=== PATIENT | male | born 1995 | race Caucasian/White ===

== ENCOUNTER 2019-07-02 01:14 | Emergency (ER) | payer OTHER ==
[2019-07-02] MEDS ORDERED: Lidocaine 1% (PF) 30 ML VIAL ONE (01:54)
== END 2019-07-02 02:44 | disposition home or self-care (01) ==
LOC: ERS 01:14
DX: S61.210A Laceration without foreign body of right index finger without damage to nail, initial encounter (principal); W25.XXXA Contact with sharp glass, initial encounter
CPT/HCPCS: 12001; J2001